=== PATIENT | female | born 1975 | race Caucasian/White ===

== ENCOUNTER 2019-02-06 18:13 | Emergency (ER) | payer OTHER, MEDICAID ==
[~2019-02-06] VITALS: Ht 170.2 cm; Wt 90.7 kg
[2019-02-06] MEDS ORDERED: ROBAXIN-500MG ORAL (18:25)
[2019-02-06] MEDS ORDERED: PAMELOR25 MG ORAL (18:25)
[2019-02-06] MEDS ORDERED: SUMATRIPTAN-NA1 EACH PO (18:25)
[2019-02-06 18:32] VITALS: BP 126/79
--- NOTE | 2019-02-06 18:34 | NUR ---
ED Nurse Note: pt walked in to ER from home due to headache and numbness in head for 3 days. pt aao x4 and ambulatory but fatigued. calm and cooperative. skin clean and intact. no acute distress noted at this moment. 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
--- NOTE | 2019-02-06 18:35 | NUR ---
ED Nurse Note: ERMD at bedside. pt provided urine sample.
--- NOTE | 2019-02-06 18:39 | NUR ---
ED Nurse Note: pt reported she lifted heavy stuff a couple of days ago which might have been a triger.
[2019-02-06] MEDS ORDERED: DiphenhydrAMINE 50mg/ml Inj IVP ONE (18:45)
[2019-02-06] MEDS ORDERED: Morphine Sulfate 4mg/ml Inj (IV USE ONLY) IVP ONE (18:45)
[2019-02-06] MEDS ORDERED: Metoclopramide 10mg/2ml Inj IVP ONE (18:45)
[2019-02-06 18:58] LABS: BASOPHILS % (AUTO) 0.6 % (0.0-2.0); HEMATOCRIT 33.5 % (37.0-47.0); LYMPHOCYTES % (AUTO) 31.3 % (20.0-45.0); MEAN CORPUSCULAR VOLUME 83 FL (80-99); MONOCYTES % (AUTO) 6.9 % (1.0-10.0); NEUTROPHILS % (AUTO) 60.2 % (45.0-75.0); PLATELET COUNT 228 K/UL (150-450); RED BLOOD COUNT 4.04 M/UL (4.20-5.40); RED CELL DISTRIBUTION WIDTH 13.9 % (11.6-14.8); WHITE BLOOD COUNT 6.6 K/UL (4.8-10.8)
[2019-02-06 18:59] LABS: APPEARANCE,URINE SLIGHTLY CLOUDY; BILIRUBIN, URINE NEGATIVE (NEGATIVE); COLOR,URINE YELLOW; GLUCOSE, URINE (UA) NEGATIVE (NEGATIVE); KETONES,URINE NEGATIVE (NEGATIVE); LEUKOCYTE ESTERASE ,URINE NEGATIVE (NEGATIVE); NITRITE,URINE NEGATIVE (NEGATIVE); PH,URINE 6 (4.5-8.0); PROTEIN,URINE NEGATIVE (NEGATIVE); UROBILINOGEN,URINE NORMAL MG/DL (0.0-1.0)
--- NOTE | 2019-02-06 19:03 | NUR ---
HAND-OFF: Report given to HAO Schulte. no orders to carry at this moment. waiting for the lab results.
--- NOTE | 2019-02-06 19:05 | NUR ---
ED Nurse Note: pt is aox4 on room air, reports decreased pain 5/10, pt resting, with no acute distress noted. pt vss, at bed side, waiting for lab results. iv site patent and intact
[2019-02-06 19:06] VITALS: BP 113/67
[2019-02-06 19:14] LABS: ANION GAP 12 mmol/L (5-15); BLOOD UREA NITROGEN 11 mg/dL (7-18); CALCIUM 8.9 MG/DL (8.5-10.1); CARBON DIOXIDE 24 MMOL/L (21-32); CHLORIDE 105 MMOL/L (98-107); CREATININE 0.8 MG/DL (0.55-1.30); POTASSIUM 3.4 MMOL/L (3.5-5.1); SODIUM 141 MMOL/L (136-145)
[2019-02-06] MEDS ORDERED: Ketorolac 30mg Inj IV ONE (19:15)
[2019-02-06 19:18] LABS: ALANINE AMINOTRANSFERASE 20 U/L (12-78); ALBUMIN 3.6 G/DL (3.4-5.0); ALKALINE PHOSPHATASE 55 U/L (46-116); ASPARTATE AMINO TRANSFERASE 12 U/L (15-37); BILIRUBIN,TOTAL 0.3 MG/DL (0.2-1.0)
[2019-02-06] MEDS ORDERED: NITROFURANTOIN100 M2 ORAL (19:46)
[2019-02-06 19:55] VITALS: BP 124/79
--- NOTE | 2019-02-06 19:55 | NUR ---
ED Nurse Note: PT DC PER ERMD ORDER. PT IS AOX4, AMBULATORY WITH STEADY GAIT, IV SITE AND ID BAND REMOVED. PT ACCOMPANIED WITH . PT UNDERSTOOD DISCHARGE AND PRESCRIPTION INSTRUCTIONS. ALL BELONGINGS TAKEN HOEM Addendum: 02/06/19 at 1957 by PDELEON ED Nurse Note: PT DC PER ERMD ORDER. PT IS AOX4, AMBULATORY WITH STEADY GAIT, IV SITE AND ID BAND REMOVED. PT ACCOMPANIED WITH . PT UNDERSTOOD DISCHARGE AND PRESCRIPTION INSTRUCTIONS. ALL BELONGINGS TAKEN HOME
--- NOTE | 2019-02-06 21:09 | Emergency Room Report ---
History of Present Illness General Chief Complaint: Headache Source: Patient Present Illness HPI 43-year-old female presents ED for evaluation. Complaining of headache. Has history of chronic migraines. Takes multiple medications at home but states they are not helping. Pain is throbbing, 8 out of 10, frontal, nonradiating. Denies photophobia or blurry vision. Denies nausea or vomiting. Also complaining of neck pain. States that she has a pinched nerve in her neck and states that a few days ago she lifted a heavy object which has triggered her pain. Denies any arm weakness or arm tingling. No other aggravating relieving factors. Denies any other associated symptoms Allergies: Coded Allergies: No Known Allergies (Unverified , 02/06/19) Patient History Past Medical History: migraines Past Surgical History: none Pertinent Family History: none Social History: Denies: smoking, alcohol use, drug use Last Menstrual Period: 01/2019 Now: No Immunizations: UTD Reviewed Nursing Documentation: PMH: Agreed; PSxH: Agreed Nursing Documentation-PMH Past Medical History: No History, Except For Review of Systems All Other Systems: negative except mentioned in HPI Physical Exam Vital Signs Date Time Temp Pulse Resp B/P (MAP) Pulse Ox O2 Delivery O2 Flow Rate FiO2 02/06/19 18:18 98.2 85 16 126/79 (95) 95 Room Air Sp02 EP Interpretation: reviewed, normal General Appearance: no apparent distress, alert, GCS 15, non-toxic Head: normocephalic, atraumatic Eyes: bilateral eye normal inspection, bilateral eye PERRL ENT: hearing grossly normal, normal pharynx, no angioedema, normal voice Neck: full range of motion, supple, no meningismus, no bony tend, supple/symm/ no masses Respiratory: chest non-tender, lungs clear, normal breath sounds, speaking full sentences Cardiovascular #1: regular rate, rhythm, no edema Cardiovascular #2: 2+ carotid (R), 2+ carotid (L), 2+ radial (R), 2+ radial (L) , 2+ dorsalis pedis (R), 2+ dorsalis pedis (L) Gastrointestinal: normal bowel sounds, non tender, soft, non-distended, no guarding, no rebound Rectal: deferred Genitourinary: normal inspection, no CVA tenderness Musculoskeletal: back normal, gait/station normal, normal range of motion, non- tender Neurologic: alert, oriented x3, responsive, 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 neck pain. h/o migraines + pinched nerve Differential diagnoses include: tension headache, migraine, dehydration, cervical strain Clinical course Patient placed on stretcher. After initial history and physical I ordered labs , IV fluids, Reglan, benedryl, toradol + morphine Labs reviewed- electrolytes okay, leukocytosis, hemoglobin/hematocrit stable, UA + bacteria Upon reassessment patient states she feels better. Discussed findings with patient. Symptoms are chronic. Will discharge to home with antibiotics. States she has medications for migraine at home. Safe for discharge for close outpatient follow-up. States she has a PMD i. I feel this is a highly complex case requiring extensive working including EKG/Rhythm strip, Xray/CT/US, Blood/urine lab work, repeat exams while in ED, and administration of strong opiates/narcotics for pain control, admission to hospital or close patient follow up. Diagnosis - headache, UTI stable and discharged to home with Rx Macrobid. f/up with PMD. return to ED if symptoms recur/worsen. Labs Test 02/06/19 18:30 White Blood Count 6.6 K/UL (4.8-10.8) Red Blood Count 4.04 M/UL (4.20-5.40) Hemoglobin 11.0 G/DL (12.0-16.0) Hematocrit 33.5 % (37.0-47.0) Mean Corpuscular Volume 83 FL (80-99) Mean Corpuscular Hemoglobin 27.2 PG (27.0-31.0) Mean Corpuscular Hemoglobin Concent 32.7 G/DL (32.0-36.0) Red Cell Distribution Width 13.9 % (11.6-14.8) Platelet Count 228 K/UL (150-450) Mean Platelet Volume 6.9 FL (6.5-10.1) Neutrophils (%) (Auto) 60.2 % (45.0-75.0) Lymphocytes (%) (Auto) 31.3 % (20.0-45.0) Monocytes (%) (Auto) 6.9 % (1.0-10.0) Eosinophils (%) (Auto) 1.0 % (0.0-3.0) Basophils (%) (Auto) 0.6 % (0.0-2.0) Urine Color Yellow Urine Appearance Slightly cloudy Urine pH 6 (4.5-8.0) Urine Specific Douglass 1.015 (1.005-1.035) Urine Protein Negative (NEGATIVE) Urine Glucose (UA) Negative (NEGATIVE) Urine Ketones Negative (NEGATIVE) Urine Blood 4+ (NEGATIVE) Urine Nitrite Negative (NEGATIVE) Urine Bilirubin Negative (NEGATIVE) Urine Urobilinogen Normal MG/DL (0.0-1.0) Urine Leukocyte Esterase Negative (NEGATIVE) Urine RBC 15-20 /HPF (0 - 2) Urine WBC 0-2 /HPF (0 - 2) Urine Squamous Epithelial Cells Many /LPF (NONE/OCC) Urine Bacteria Many /HPF (NONE) Urine HCG, Qualitative Negative (NEGATIVE) Sodium Level 141 MMOL/L (136-145) Potassium Level 3.4 MMOL/L (3.5-5.1) Chloride Level 105 MMOL/L (98-107) Carbon Dioxide Level 24 MMOL/L (21-32) Anion Gap 12 mmol/L (5-15) Blood Urea Nitrogen 11 mg/dL (7-18) Creatinine 0.8 MG/DL (0.55-1.30) Estimat Glomerular Filtration Rate > 60 mL/min (>60) Glucose Level 127 MG/DL (74-106) Calcium Level 8.9 MG/DL (8.5-10.1) Total Bilirubin 0.3 MG/DL (0.2-1.0) Aspartate Amino Transf (AST/SGOT) 12 U/L (15-37) Alanine Aminotransferase (ALT/SGPT) 20 U/L (12-78) Alkaline Phosphatase 55 U/L (46-116) Total Protein 7.1 G/DL (6.4-8.2) Albumin 3.6 G/DL (3.4-5.0) Globulin 3.5 g/dL Albumin/Globulin Ratio 1.0 (1.0-2.7) Lipase 68 U/L (73-393) Last Vital Signs Date Time Temp Pulse Resp B/P (MAP) Pulse Ox O2 Delivery O2 Flow Rate FiO2 02/06/19 19:55 98.6 81 19 124/79 100 Room Air Status: improved Disposition: HOME, SELF-CARE Condition: Stable Scripts Nitrofurantoin Monohyd/M-Cryst* (MACROBID 100 MG*) 100 Mg Capsule 100 MG ORAL EVERY 12 HOURS for 7 Days, CAP Prov: Alan Kaur MD 02/06/19 Patient Instructions: Migraine Headache Alan Kaur MD Feb 06, 2019 21:08
== END 2019-02-06 19:55 | disposition home or self-care (01) ==
LOC: EMR 19:20
DX: R51 Headache (principal); N39.0 Urinary tract infection, site not specified
CPT/HCPCS: 36415; 80053; 81003; 81025; 83690; 85025; 87086; 96361; 96374; 96375; 99284; J1200; J2270; J2765; J7030